=== PATIENT | male | born 1955 | race Caucasian/White ===

== ENCOUNTER → 2017-05-31 | Outpatient (CLI) | payer OTHER | LOC: ULTRA 08:04 | DX: N28.1 Cyst of kidney, acquired (principal); R16.1 Splenomegaly, not elsewhere classified; R94.5 Abnormal results of liver function studies; R74.8 Abnormal levels of other serum enzymes ==

== ENCOUNTER → 2017-09-26 | Outpatient (CLI) | payer OTHER | LOC: NUC 09:09 | DX: R79.89 Other specified abnormal findings of blood chemistry (principal); R89.9 Unspecified abnormal finding in specimens from other organs, systems and tissues ==

== ENCOUNTER → 2017-09-29 | Outpatient (CLI) | payer OTHER | LOC: RAD 07:39 | DX: M88.862 Osteitis deformans of left lower leg (principal) ==

== ENCOUNTER → 2019-09-25 | Outpatient (CLI) | payer OTHER ==
[~2019-09-25] VITALS: Ht 190.5 cm; Wt 88.9 kg
[~2019-09-25] MED LIST: DILTIAZEM ER120 MG PO; DILTIAZEM ER180 M2 PO; ELIQUIS5 MG PO; FLECAINIDE ACE150 MG PO; FLONASE 0.05%50 MCG NARES; LIPITOR10 MG PO; LORATIDINE 10 M10 M1 PO; VITAMIN D32000 UNIT PO
[2019-09-25 08:21] VITALS: BP 115/69
--- NOTE | 2019-09-25 10:00 | EKG ---
[place] [address] [facility] [facility] [place] [place] [address] ELECTROCARDIOGRAM REPORT Name: MELCHOR CORRIGAN Room #: [facility] [id number] Admission: 09/25/19 Attend Phys: Lawrence Vergara MD, Discharge: Date of : 51 Report #: [id number] THIS REPORT FOR: //name// [facility] Test Date: 2019-09-25 Test Time: 09:30:02 Pat Name: MELCHOR CORRIGAN Department: Room: Gender: M Buzzle Buffer: Charbel EAGLE : 1955 Requested By: Lawrence Vergara Order Number: [id number] MD: Lawrence Vergara Measurements Intervals [place] Rate: 65 P: 52 [place]: 179 QRS: 48 QRSD: 105 T: 34 QT: 421 QTc: 438 Interpretive Statements Sinus rhythm RSR' in V1 or V2, right VCD No previous ECG available for comparison Electronically Signed On 09-25-2019 10:00:13 SKIP TRACER by Lawrence Vergara [email or web address] <ELECTRONICALLY SIGNED> By: Lawrence Vergara MD, [facility] 09/25/19 1000 0930 9 Lawrence Vergara MD, FACC /EPI
--- NOTE | 2019-09-25 10:54 | NUR ---
PT RECOVERED WELL AFTER PROCEDURE. DRANK WATER AND UP TO BATHROOM TO VOID WITH STEADY GAIT PRIOR TO DC. NEO DISCUSSED DOSE CHANGE WITH PT AND SPOUSE OF DILTIAZEM FROM 180 MG DAILY TO 120 MG DAILY. SEE VS FLOW SHEET.
--- NOTE | 2019-09-29 17:07 | CATHLAB ---
[facility] [address] [place] [address] INVASIVE PROCEDURE REPORT Name: MELCHOR CORRIGAN Room #: REG [facility]#: [id number] Admission: 09/25/19 Attend Phys: Lawrence Vergara, Discharge: Date of : 51 Report #: [id number] THIS REPORT FOR: //name// CC: Lawrence Fernández PROCEDURE: Cardioversion. INDICATIONS: Atrial flutter. DESCRIPTION OF PROCEDURE: The potential benefits and risks of the procedure were discussed at length with the patient who understood. Full written and informed consent was obtained. The patient was sedated with intravenous Versed and fentanyl. 50 biphasic joules were applied to the chest with prompt conversion of atrial flutter to sinus rhythm. He remained in hemodynamically, electrically, and neurologically stable condition following the procedure. SUMMARY: Successful cardioversion of atrial flutter to sinus rhythm following a single 50 joule biphasic synchronous joule shock. <ELECTRONICALLY SIGNED> By: Lawrence Vergara MD, [facility] 09/29/19 1707 0910 0939 Lawrence Vergara MD, FAC /nt
== END | disposition home or self-care (01) ==
LOC: CATH 07:12
DX: I48.92 Unspecified atrial flutter (principal); E78.00 Pure hypercholesterolemia, unspecified; E78.5 Hyperlipidemia, unspecified; I25.10 Atherosclerotic heart disease of native coronary artery without angina pectoris; Z98.890 Other specified postprocedural states; Z79.899 Other long term (current) drug therapy; Z82.49 Family history of ischemic heart disease and other diseases of the circulatory system; Z79.01 Long term (current) use of anticoagulants; Z87.442 Personal history of urinary calculi

== ENCOUNTER → 2019-10-16 | Outpatient (CLI) | payer OTHER ==
[2019-10-16 09:16] LABS: HEMATOCRIT 43.9 % (42.0-52.0); HEMOGLOBIN 14.9 gm/dL (14.0-18.0); MCHC 34.1 g/dL (28.0-37.0); MCV 99.8 fL (80.0-100.0); RBC 4.4 mil/uL (4.50-6.00); WBC 4.4 thou/uL (4.0-11.0)
[2019-10-16 09:24] LABS: ALBUMIN 4.3 g/dL (3.4-5.0); CALCIUM 9.3 mg/dL (8.5-10.1); POTASSIUM 4.6 mmol/L (3.5-5.1); TOTAL BILIRUBIN 1.2 mg/dL (<0.1-1.0); TOTAL PROTEIN 7.3 g/dL (6.4-8.2)
== END ==
LOC: CAT 08:24
PROVIDERS: Internal Medicine Infectious Disease
DX: I48.91 Unspecified atrial fibrillation (principal); I25.10 Atherosclerotic heart disease of native coronary artery without angina pectoris; M47.814 Spondylosis without myelopathy or radiculopathy, thoracic region; Z90.49 Acquired absence of other specified parts of digestive tract

== ENCOUNTER → 2019-10-20 | Outpatient (CLI) | payer OTHER ==
[~2019-10-20] VITALS: Ht 190.5 cm; Wt 88.5 kg
[~2019-10-20] MED LIST changes: +TAMBOCOR 100 M100 M1 PO
[2019-10-20 07:08] VITALS: BP 102/58
--- NOTE | 2019-10-20 09:04 | TEE ---
[facility] [address] [place] [address] TRANSESOPHAGEAL ECHOCARDIOGRAM Name: MELCHOR CORRIGAN Room #: [facility] [id number] Admission: 10/20/19 Attend Phys: Lawrence Vergara, Discharge: Date of : 51 Report #: [id number] THIS REPORT FOR: //name// APPROVED REPORT Study performed: 10/20/2019 08:07:22 EXAM: Transesophageal Echocardiogram with Doppler Patient Location: Out-Patient Room #: 9 Status: routine BSA: 2.17 HR: 52 bpm BP: 103/68 mmHg Rhythm: Atrial Flutter Other Information Study Quality: Excellent Indications Atrial flutter Echo Enhancing Agent Indication: Rule out Shunt Agent(s) / Amount(s) Used: Agitated Saline 7 cc Procedure After obtaining informed consent, patient underwent transesophageal echo in the [employer]. Type of Sedation : Conscious Sedation Sedation was administered by Nurse. Sedation was achieved intravenously with: Versed (4 mg) Fentanyl (200 mcg) Echo enhancement indication: R/O Septal defect. Echo enhancement agent administered: Agitated Saline The JORJE was performed without complications. Throughout the procedure, the blood pressure, pulse oximetry, cardiac rhythm, and rate were monitored. The patient tolerated the procedure without adverse effects. Recovery from conscious sedation was uneventful and vital signs were stable. Left Ventricle The left ventricle is normal size. There is normal LV segmental wall motion. There is normal left ventricular wall thickness. The left [facility] [address] [place] [address] TRANSESOPHAGEAL ECHOCARDIOGRAM Name: MELCHOR CORRIGAN Room #: REG [facility].#: [id number] Admission: 10/20/19 Attend Phys: Lawrence Vergara, Discharge: Date of : 51 Report #: [id number] ventricular systolic function is normal. The left ventricular ejection fraction is within the normal range. LVEF is 55%. Right Ventricle The right ventricle is normal size. The right ventricular systolic function is normal. Atria The left atrium size is normal. No thrombus is visualized in the left atrium or appendage. No shunting by contrast bubble injection The right atrium size is normal. Aortic Valve The aortic valve is normal in structure. Mild aortic regurgitation. There is no aortic valvular stenosis. Mitral Valve The mitral valve is normal in structure. Mild mitral regurgitation. No evidence of mitral valve stenosis. Tricuspid Valve The tricuspid valve is normal in structure. Mild tricuspid regurgitation. Pulmonic Valve The pulmonary valve is normal in structure. There is no pulmonic valvular regurgitation. Great Vessels The aortic root is normal in size. IVC is normal in size and collapses >50% with inspiration. Pericardium There is no pericardial effusion. <Conclusion> The left ventricular systolic function is normal. There is normal LV segmental wall motion. LVEF is 55%. The left atrium size is normal. No thrombus is visualized in the left atrium or appendage. No shunting by contrast bubble injection The aortic valve is normal in structure. Mild aortic regurgitation, no stenosis. The mitral valve is normal in structure. Mild mitral [facility] [address] [place] [address] TRANSESOPHAGEAL ECHOCARDIOGRAM Name: MELCHOR CORRIGAN Room #: REG [facility]#: [id number] Admission: 10/20/19 Attend Phys: Lawrence Vergara, Discharge: Date of : 51 Report #: [id number] regurgitation. There is no pericardial effusion. <ELECTRONICALLY SIGNED> By: Lawrence Vergara MD, [facility] 10/20/19902 2 2 Lawrence Vergara MD, FAC /INF
== END | disposition home or self-care (01) ==
LOC: CATH 07:03
DX: I48.92 Unspecified atrial flutter (principal); I08.3 Combined rheumatic disorders of mitral, aortic and tricuspid valves; E78.00 Pure hypercholesterolemia, unspecified; I25.10 Atherosclerotic heart disease of native coronary artery without angina pectoris; Z98.890 Other specified postprocedural states; Z79.899 Other long term (current) drug therapy; Z87.442 Personal history of urinary calculi; Z79.01 Long term (current) use of anticoagulants

== ENCOUNTER 2019-10-24 13:00 | Observation (INO) | payer OTHER ==
[2019-10-24] VITALS (13 sets, daily range): BP systolic 115–134; BP diastolic 65–80
[~2019-10-24] VITALS: Ht 182.9 cm; Wt 88.9 kg
--- NOTE | ~2019-10-24 | P ---
[facility] [address] [place] [facility] [address] PROCEDURE REPORT Name: MELCHOR CORRIGAN Room #: 206-P [facility]..#: [id number] Admission: 10/24/19 Attend Phys: Da Negro MD Discharge: Date of : 51 Report #: [id number] THIS REPORT FOR: cc: Frederick Fernández MD, Neal A. MD Couchonnal, Luis F. MD ~ THIS REPORT FOR: //name// CC: Da Fernández PROCEDURE: AFib ablation and atrial flutter ablation. PREOPERATIVE DIAGNOSES: 1. Atrial fibrillation. 2. Typical atrial flutter. POSTOPERATIVE DIAGNOSES: 1. Atrial fibrillation. 2. Typical atrial flutter. PROCEDURES PERFORMED: 1. AFib ablation, CPT code 26558. 2. 3D mapping, CPT code 68671. 3. Intracardiac echo, CPT code 09308. 4. Second pathway ablation, CPT code 36500. HISTORY: The patient is a 64-year-old with structurally normal heart with recurrent AFib and atrial flutter despite antiarrhythmic drug therapy. He is here for an ablation. ANESTHESIA: The patient underwent general anesthesia with no anesthesia related complications. DESCRIPTION OF PROCEDURE: The patient underwent informed consent. We discussed details of the procedure including the risks, which include but not limited to bleeding, vascular damage, cardiac perforation, stroke and SD. He understood these risks and is willing to proceed. The patient was brought to the EP laboratory in a fasting and sedated state, prepped and draped in a sterile fashion. He had undergone a JORJE prior to the procedure showing no left atrial appendage thrombus. He underwent a CT scan, also that showed 2 left and 2 right pulmonary veins. Next, at baseline, the patient was in sinus rhythm. Obtained access to the right femoral vein x 3 and the left femoral vein x 1. In the right femoral vein, I placed an 8, 6 and 9-Danish short sheath; in the left femoral vein, I [address] [address] PROCEDURE REPORT Name: MEENUMELCHOR F Room #: 206-P [facility] Yfn#: [id number] Admission: 10/24/19 Attend Phys: Da Negro MD Discharge: Date of : 51 Report #: [id number] placed a 7-Danish short sheath. Next, under fluoroscopy, I placed a decapolar catheter easily in the coronary sinus and ice catheter in the right atrium. Using intracardiac ultrasound, I created a detailed 3D geometry of the left atrium with specific emphasis of the appendage in the 2 left and 2 right pulmonary veins. This was merged with the cardiac CT scan. The patient was systemically heparinized and the transseptal was performed using an SL1 sheath and a [place] needle. This was straightforward with no issues. I then exchanged the SL1 sheath for the cryo sheath and placed this into the left atrium and using a Biosense-Mane Lasso catheter, I created a detailed 3D geometry of the left atrium. Next, I started by attempting to isolate the left superior pulmonary vein. I performed 2 initial freezes, first freeze was of 180 seconds duration, the second freeze was of 240 seconds duration. The lowest temp was -40 degrees. The vein did not isolate. I therefore decided to move to the left inferior pulmonary vein. I performed initially 180 second freeze followed by 120-second freeze, 240-second freeze and another 180-second freeze. Neither of these freezes resulted in isolation. I initially was using pressure waveforms and then performed injections in this vein and never got a really good seal. I then went and checked the left superior vein and this was still connected therefore, I went to the right superior pulmonary vein. We performed phrenic nerve pacing from the decapolar catheter placed up at the subclavian vessel. I performed a 180-second freeze followed by 110-second freeze. These attempts were very good at -50 degrees. It appeared that the vein was now isolated and there was independent firing. I then turned my attention to the right inferior pulmonary vein and performed a 4-minute freeze followed by 120-second freeze and appeared the vein isolated during the first freeze. I then turned my attention to the right superior pulmonary vein. This time, I performed some injections and finally got a seal when I clocked the balloon. I performed a 4-minute freeze, which resulted in isolation within 60 seconds. When I turned my attention to the left inferior pulmonary vein, it appeared that this was now isolated. I performed an additional 4-minute freeze in the inferior vein to ensure that the judi between the 2 vessels was isolated. As such, I removed the cryo-balloon and placed a Lasso catheter, created a voltage map of the left atrium and we had clearly isolated all the veins. As such, I pulled my catheters to the right atrium. ABLATION OF TYPICAL ATRIAL FLUTTER: Given his history of typical atrial flutter, we proceeded with atrial flutter ablation. I utilized an 8-mm ablation catheter via a ramp sheath. Pre-ablation, the transisthmus conduction time was 50. Ablation was performed at 6 o'clock along the cavotricuspid isthmus. I performed 2 lines. Post-ablation, I performed a voltage map of this area and there was no further voltage. Furthermore, the transisthmus conduction time pacing either medial or lateral to line was now 120 milliseconds. As such, the procedure was concluded. Intracardiac ultrasound verified. No evidence of pericardial effusion. As such, the patient received systemic protamine. Sheaths were pulled. Hemostasis was obtained. The patient awoke neurologically and hemodynamically intact. No complications and no significant bleeding. [facility] [address] [place] [address] PROCEDURE REPORT Name: MELCHOR CORRIGAN Room #: 206-P [facility] [place]#: [id number] Admission: 10/24/19 Attend Phys: Da Negro MD Discharge: Date of : 51 Report #: [id number] CONCLUSIONS: 1. Successful AFib ablation with isolation of pulmonary veins. 2. Successful atrial flutter ablation with evidence of bidirectional block. By: 1301 33 Da Negro MD /nt
[2019-10-24 07:07] LABS: ABSOLUTE NEUTROPHILS 4.1 thou/uL (1.4-8.2); BASOPHILS 0.2 % (0.0-2.0); EOSINOPHILS 1.7 % (0.0-3.0); HEMATOCRIT 44.2 % (42.0-52.0); HEMOGLOBIN 15.2 gm/dL (14.0-18.0); LYMPHOCYTES 16.9 % (24.0-44.0); MCHC 34.3 g/dL (28.0-37.0); MCV 99.2 fL (80.0-100.0); MONOCYTES 7.1 % (1.0-8.0); PLATELET COUNT 154 thou/uL (150-400); POLYS 74.1 % (36.0-66.0); RBC 4.46 mil/uL (4.50-6.00); RDW 12.8 % (10.5-14.5); WBC 5.5 thou/uL (4.0-11.0)
[2019-10-24 07:18] LABS: CALCIUM 8.9 mg/dL (8.5-10.1); INR 1.1; POTASSIUM 3.9 mmol/L (3.5-5.1); PROTIME 11.4 Seconds (9.3-11.4)
[2019-10-24 07:25] LABS: ALBUMIN 4.3 g/dL (3.4-5.0); TOTAL PROTEIN 7.7 g/dL (6.4-8.2)
[2019-10-25 04:03] VITALS: BP 118/64
[2019-10-25] MEDS ORDERED: DILTIAZEM ER120 MG PO ×2 (07:50)
[2019-10-25] MEDS ORDERED: FLECAINIDE ACE150 MG PO ×2 (07:50)
[2019-10-25 07:55] VITALS: BP 147/67
[2019-10-25 08:20] VITALS: BP 118/64
== END 2019-10-25 09:52 | disposition home or self-care (01) ==
LOC: CATH 13:00 → 2N 13:01 → CATH 14:00 → 2N 10-25 09:52
PROVIDERS: ADMIT Internal Medicine Cardiovascular Disease
DX: I48.91 Unspecified atrial fibrillation (principal); I48.92 Unspecified atrial flutter
CPT/HCPCS: 62110; 62900; 65020; 65040; 65131; 70005

== ENCOUNTER 2020-02-06 06:49 | Outpatient (CLI) | payer OTHER ==
[2020-02-06] VITALS (8 sets, daily range): BP systolic 106–126; BP diastolic 69–75
[~2020-02-06] VITALS: Ht 190.5 cm; Wt 108.1 kg
[~2020-02-06 06:49] MED LIST changes: -VITAMIN D32000 UNIT PO; +VITAMIN D350 MC1 PO
[2020-02-06 07:51] LABS: ABSOLUTE NEUTROPHILS 3.5 thou/uL (1.4-8.2); BASOPHILS 0.3 % (0.0-2.0); EOSINOPHILS 2.1 % (0.0-3.0); HEMATOCRIT 44.6 % (42.0-52.0); HEMOGLOBIN 15.5 gm/dL (14.0-18.0); LYMPHOCYTES 20.4 % (24.0-44.0); MCH 34.5 pg (26.0-34.0); MCHC 34.8 g/dL (28.0-37.0); MCV 99.1 fL (80.0-100.0); MONOCYTES 8.6 % (1.0-8.0); PLATELET COUNT 152 thou/uL (150-400); POLYS 68.6 % (36.0-66.0); RDW 12.6 % (10.5-14.5); WBC 5.2 thou/uL (4.0-11.0)
[2020-02-06 08:01] LABS: PROTIME 10.4 Seconds (9.3-11.4)
[2020-02-06 08:31] LABS: CALCIUM 8.4 mg/dL (8.5-10.1); CREATININE 1.1 mg/dL (0.7-1.3); POTASSIUM 3.9 mmol/L (3.5-5.1)
[2020-02-06 08:37] LABS: TOTAL BILIRUBIN 0.9 mg/dL (<0.1-1.0); TOTAL PROTEIN 7.2 g/dL (6.4-8.2)
[2020-02-06] MEDS ORDERED: TAMBOCOR 100 M100 M1 PO ×2 (15:36→16:05)
--- NOTE | 2020-02-06 17:27 | NUR ---
PT. ARRIVED AROUND 0; PT. AOX4; NO C/O PAIN; R GROIN SIDE DRESSING WITH OLD DRAINAGE; NO HEMATOMA; L. SIDE DRESSING C/D/I; NO HEMATOMA; PT. EDUCATED ABOUT HOLDING PRESSURE IF COUGHING; ON BED REST UNTIL 2044; NOT BEND BLE; ST. UNDERSTANDING; VS WNL; REFUSED DINNER; ST. WANTS TO WAIT UNTIL OFF OF BED REST; ADMISSION PERFOMED; SR ON THE MONITOR; MONITORING; ASSESSMENT CHARGED; FOLLOWING POC; WILL PASS ON REPORT;
[2020-02-07] VITALS: BP 126/84
[2020-02-07 04:33] VITALS: BP 122/77
--- NOTE | 2020-02-07 06:38 | NUR ---
ASSUMED PT CARE AT 1900. PT IS ALERT AND ORIENTED WITH NO SIGN OF DISTRESS NOTED IN PT. PT IS ON BEDREST DUE TO AN ABLATION. BEDREST INITIALLY COMPLETED AT 2024. UPON COMPLETED , PT SAT AT THE GOT UP TO SIT AT THE EDGE OF THE BED WHEN HE NOTICED THAT HE WAS BLEEDING FROM THE RIGHT GROIN SITE. PT PLACE BACK ON BEDREST, PRESSURE APPLIED TO RIGHT GROIN SITE FOR 25 MINUTES. BLEEDING CONTROLLED. PT IS STABLE. BEDREST COMPLETED AT 324. PT AMBULATED WITH NO DISTRESS. ASSESSMENT COMPLETED AND DOCUMENTED. SCHEDULED MEDS ADMINISTERED TO PT. DENIES ANY FURTHER NEEDS AT THIS TIME
[2020-02-07] MEDS ORDERED: TAMBOCOR 100 M100 M1 PO (07:22)
[2020-02-07 08:00] VITALS: BP 117/74
[2020-02-07 08:48] VITALS: BP 117/74
[2020-02-07 09:47] VITALS: BP 117/74
--- NOTE | 2020-02-09 08:29 | P ---
[facility] [address] PROCEDURE REPORT Name: MELCHOR CORRIGAN Room #: DEP [facility] Yfn#: [id number] Admission: 02/06/20 Attend Phys: Da Negro MD Discharge: 02/07/20 Date of : 51 Report #: [id number] THIS REPORT FOR: cc: Frederick Fernández MD, Neal A. MD Couchonnal, Luis F. MD ~ CC: Da Fernández DATE OF SERVICE: 02/06/2020 AFIB AND A-FLUTTER ABLATION PREOPERATIVE DIAGNOSIS: Atrial flutter. 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 PROCEDURES PERFORMED: 1. Atrial fibrillation ablation, CPT code 42056. 2. 3D mapping, CPT code 07325. 3. Intracardiac echo, CPT code 42125. 4. Focal ablation of the coronary sinus, CPT code 39792. 5. Second pathway ablation for mitral annular flutter, CPT code 31782. HISTORY: The patient is a 64-year-old male with a history of structurally normal heart, who is status post recent AFib ablation. At that time, we isolated his pulmonary veins using cryoablation balloon and performed an empiric right-sided flutter ablation given prior documented atrial flutter. The patient was seen in clinic in followup and was noted to be back in atrial flutter. He is here for repeat AFib ablation and atrial flutter ablation. ANESTHESIA: The patient underwent general anesthesia with no anesthesia related complications. DESCRIPTION OF PROCEDURE: The patient was brought to the EP laboratory in fasting and sedated state, prepped and draped in the sterile fashion. In the right femoral vein, I placed two 8-Haitian short sheath and a 9-Haitian short sheath. In left femoral vein, I placed two 7-Haitian short sheaths. Under fluoroscopy, I placed a Decapolar catheter into the coronary sinus and ICE catheter into the right atrium and a Duo-Decapolar catheter into the right atrium. The patient was noted to have a left-sided atrial flutter with a tachycardia cycle length of around 220 milliseconds with a distal to proximal activation pattern. When I paced from CS 1-2, the PPI minus tachycardia cycle length was around 20 milliseconds consistent with probable mitral annular flutter. As such, the patient was systemically heparinized and a transseptal was performed using an SL1 sheath and a [place] needle. This was [facility] [address] [place] [address] PROCEDURE REPORT Name: MELCHOR CORRIGAN Room #: DEP [facility]#: [id number] Admission: 02/06/20 Attend Phys: Da Negro MD Discharge: 02/07/20 Date of : 51 Report #: [id number]. I then exchanged for the Agilis sheath and then I placed a PentaRay catheter into the left atrium and created an activation and voltage map. It appeared that all the veins were reconnected except the left superior pulmonary vein. The left inferior pulmonary vein had a slight area of reconnection. We created an activation map and we performed entrainment and based on these findings, a diagnosis of mitral annular flutter was made. We first started by isolating the left inferior pulmonary vein and then we performed a mitral annular flutter line from the left inferior pulmonary vein to the mitral annulus. There was no slowing of the tachycardia. I performed multiple lines along this region looking for atrial signals. There was no change in the tachycardia cycle length. I therefore took the ablation catheter into the coronary sinus and performed ablation along the roof of the coronary sinus from around 3 o'clock down to 6 o'clock along the coronary sinus. Despite this ablation, the atrial flutter did not slow nor did it terminate. Therefore, we remapped the flutter and our map essentially was unchanged. I did perform some additional entrainment along the ridge between the left superior and the left atrial appendage. I therefore ablated all along the ridge and also along the vein side and appendage side of the ridge. I connected this line down to my mitral annular line and despite this, the patient was still in atrial flutter. I therefore widened my area of ablation along the posterior wall and created a roofline and then there was still evidence of connection of the right superior pulmonary vein and there was a right middle vein and there was still connection of the right inferior pulmonary vein. I attempted to ablate using the radiofrequency in this area, but I was limited by my transseptal and nearly lost transseptal access several times. Therefore, we transitioned over to the cryoablation balloon and I was able to isolate the right inferior pulmonary vein with cryoballoon. I could not engage the right middle pulmonary vein with the cryoballoon. It was quite small, but did have activity and I did multiple freezes of the right superior pulmonary vein and the vein would isolate after about 3 minutes and then it would reconnect. I did multiple freezes in this right superior pulmonary vein and despite my best efforts, I could not isolate this vein. Of note, phrenic nerve pacing was performed while freezing the right-sided veins and there was never any phrenic nerve compromise. I decided to use a cryoballoon to further isolate the posterior wall of the left atrium. We performed 3 freezes anchored from the left superior pulmonary vein and 2 freezes anchored from the left inferior pulmonary vein, hoping that maybe we would transect whatever circuit was driving this atrial flutter. Despite these freezes, the patient remained in atrial flutter. Therefore, I performed a 200 joule synchronized cardioversion. I re-interrogated all the veins and all veins were isolated except this right superior pulmonary vein and this very small right inferior pulmonary vein that I could not engage with the balloon. As such, the procedure was concluded. The patient was in sinus rhythm. The patient received systemic protamine and once ACT was within acceptable range, catheters and sheaths were pulled. Of note, post-ablation, there was no pericardial effusion and we did perform esophageal temperature monitoring throughout the case and these remained stable with cryoablation and [facility] [address] [place] [address] PROCEDURE REPORT Name: MELCHOR CORRIGAN [facility] [id number] Admission: 02/06/20 Attend Phys: Da Negro MD Discharge: 02/07/20 Date of : 51 Report #: [id number] radiofrequency ablation. CONCLUSIONS: 1. Unsuccessful ablation of probable mitral annular flutter despite creation of a mitral line ablation along the ridge and a coronary sinus ablation. 2. Successful re-isolation of the left inferior and right inferior pulmonary veins. 3. Unsuccessful isolation of the right superior pulmonary vein and right middle pulmonary vein, which were in close proximity to each other. <ELECTRONICALLY SIGNED> By: Da Negro MD 02/09/20 0829 1436 1540 Da Negro MD /nt
--- NOTE | 2020-02-24 14:03 | P ---
[facility] [place] [address] PROCEDURE REPORT Name: MELCHOR CORRIGAN Room #: DEP Loan Coulter#: [id number] Admission: 02/06/20 Attend Phys: Da Negro MD Discharge: 02/07/20 Date of : 51 Report #: [id number] THIS REPORT FOR: cc: Frederick Fernández MD, Neal A. MD Couchonnal, Luis F. MD ~ CC: Da Fernández DATE OF SERVICE: 02/06/2020 AFIB/AFLUTTER ABLATION PREOPERATIVE DIAGNOSES: 1. Atrial fibrillation. 2. Atrial flutter. POSTOPERATIVE DIAGNOSES: 1. Atrial fibrillation. 2. 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 PROCEDURES PERFORMED: 1. Atrial fibrillation ablation, CPT code 17169. 2. 3D mapping, CPT code 00696. 3. Intracardiac echo, CPT code 55375. 4. Focal ablation, CPT code 18235. 5. Second pathway ablation, CPT code 57710. HISTORY OF PRESENT ILLNESS: The patient is a 64-year-old male status post recent AFib ablation. The patient had been doing well post-ablation, but then was found to have new-onset atrial flutter. He is here for AFib and atrial flutter ablation. PROCEDURE: The patient was brought to the EP laboratory in fasting and sedated state and prepped and draped in a sterile fashion. He was noted to be in atrial flutter at baseline. I then obtained access to the right femoral vein x 3 and the left femoral vein x 2. In the right femoral vein, I placed two 8-Congolese short sheaths and a 9-Congolese short sheath and in left femoral vein, I placed two 7-Congolese short sheaths. Next, under fluoroscopy, I placed a Decapolar catheter easily in the coronary sinus for left atrial pacing and recording. I placed a Duo-Decapolar catheter into the right atrium. I placed an ICE catheter into the right atrium for intracardiac ultrasound and for 3D geometry. Once I placed the Decapolar into the coronary sinus, it became evident that the patient appeared to have a left-sided atrial flutter. Entrainment was performed from the CS 1-2 and this showed a PPI minus tachycardia cycle length of 10 milliseconds. Next, the patient was systemically heparinized and a transseptal was performed using [facility] [address] [place] [address] PROCEDURE REPORT Name: MEENUMELCHOR Room #: DEP [facility] Yfn#: [id number] Admission: 02/06/20 Attend Phys: Da Negro MD Discharge: 02/07/20 Date of : 51 Report #: [id number] an SL1 sheath and a [place] needle and then I transitioned over to an Agilis and used a PentaRay for 3D voltage mapping of the left atrium. The repeat voltage map of the left atrium showed that the left inferior pulmonary vein was reconnected and that the right superior pulmonary vein was reconnected. The other veins remained isolated. AFib ablation: Next, the left inferior pulmonary vein was re-isolated. Attempts were made to re-isolate the right superior pulmonary vein but this was challenging. I did have somewhat of a high and posterior transseptal. To try and isolate this right superior pulmonary vein, I transitioned over to a cryoablation balloon and I performed several freezes of this vein and the vein would transiently isolate but then it would reconnect. Post-ablation, there was still some small electrograms noted in the right superior pulmonary vein, but most of the vein was isolated. I performed additional ablation lesions in the right inferior pulmonary vein, and I cryo ablated the left inferior pulmonary vein and the left superior pulmonary veins as well just to try and widen out the prior ablation. I was also hoping that additional ablation with the cryoballoon would terminate the mitral annular flutter; however, this was unsuccessful. Using the cryoablation balloon, I also performed several roofline freezes to try and isolate the posterior roof region of the left atrium. Mitral annular flutter ablation: Initially ablation of the mitral annular flutter was performed in the left atrium and I tried to connect the left inferior pulmonary vein to the mitral annulus. This did not result in termination of the flutter. I therefore entered the coronary sinus and performed a continuous drag lesion along the coronary sinus and this did not terminate the flutter either. Further mapping of this flutter was performed multiple times including ablation being performed along the ridge between the left superior pulmonary vein and the left atrial appendage. A continuous drag line was performed from this region. I connected this with my mitral annular line. This did not result in termination. As mentioned above, initially, I did try to ablate this mitral annular flutter alone and then turned to trying to use the cryoablation balloon to widen our areas of ablation by performing mitral annular line and widening our ablation sets from the pulmonary veins and this also did not result in termination of the tachycardia. As such, we performed extensive ablation and could not terminate this atrial flutter. As such, the patient underwent DC cardioversion with voodoo of sinus rhythm. Post-ablation, the patient was in sinus rhythm with sinus cycle length of 795 milliseconds, [place] interval 165 milliseconds, QRS duration 99 milliseconds, QT interval 390 milliseconds. Of note, esophageal temperatures were monitored during RF and cryoablation. CONCLUSIONS: 1. Unsuccessful ablation of atypical atrial flutter, likely mitral annular in nature. 2. Successful re-isolation of the pulmonary veins. [facility] [address] [place] [address] PROCEDURE REPORT Name: MELCHOR CORRIGAN [id number] Admission: 02/06/20 Attend Phys: Da Negro MD Discharge: 02/07/20 Date of : 51 Report #: [id number] 3. Unsuccessful isolation of the right superior pulmonary vein due to challenging anatomy. <ELECTRONICALLY SIGNED> By: Da Negro MD 02/24/20 1403 [id number] [id number] Da Ngero MD /nt
== END 2020-02-07 09:59 | disposition home or self-care (01) ==
LOC: CATH 06:49 → 2N 15:55 → CATH 02-07 09:59
PROVIDERS: Internal Medicine Cardiovascular Disease
DX: I48.92 Unspecified atrial flutter (principal); I48.91 Unspecified atrial fibrillation; E78.5 Hyperlipidemia, unspecified; E78.00 Pure hypercholesterolemia, unspecified; Z98.890 Other specified postprocedural states; Z79.899 Other long term (current) drug therapy; Z79.01 Long term (current) use of anticoagulants
CPT/HCPCS: 10081; 62110; 62900; 65020; 65040; 65131; 70005

== ENCOUNTER 2020-02-08 10:26 | Emergency (ER) | payer OTHER ==
[~2020-02-08] VITALS: Ht 182.9 cm; Wt 90.7 kg
[2020-02-08 11:36] LABS: URINE BILIRUBIN NEGATIVE (Negative); URINE BLOOD 1+ (Negative); URINE CLARITY CLEAR; URINE COLOR YELLOW; URINE GLUCOSE-RANDOM* NEGATIVE (Negative); URINE KETONES NEGATIVE (Negative); URINE LEUKOCYTES-REFLEX TRACE (Negative); URINE NITRITE-REFLEX NEGATIVE (Negative); URINE PROTEIN (DIPSTICK) NEGATIVE (Negative); URINE SPECIFIC GRAVITY <= 1.005 (1.005-1.035); URINE UROBILINOGEN 0.2 E.U./dl (0.2-1.0)
[2020-02-08 11:51] LABS: SQUAMOUS 0-3 Few /LPF (0-3)
[2020-02-08 11:52] LABS: BACTERIA-REFLEX 1-9 Few /HPF (None Seen); CASTS None Seen /LPF (None Seen); CRYSTALS None Seen /LPF (None Seen); URINE RBC 3-10 Few /HPF (0-2); URINE WBC-REFLEX 0-5 Rare /HPF (0-5)
[2020-02-08 12:01] LABS: MCH 34.3 pg (26.0-34.0); MCHC 34.7 g/dL (28.0-37.0); MCV 98.9 fL (80.0-100.0); RBC 3.94 mil/uL (4.50-6.00); RDW 12.4 % (10.5-14.5); WBC 11.8 thou/uL (4.0-11.0)
[2020-02-08 12:03] LABS: HEMOGLOBIN 13.5 gm/dL (14.0-18.0)
[2020-02-08 12:06] LABS: ANION GAP 8 mmol/L (7-16); BUN 19 mg/dL (7-18); CALCIUM 7.9 mg/dL (8.5-10.1); CHLORIDE 103 mmol/L (98-107); CO2 27 mmol/L (21-32); CREATININE 1.1 mg/dL (0.7-1.3); GLUCOSE 102 mg/dL (74-106); POTASSIUM 3.8 mmol/L (3.5-5.1); SODIUM 138 mmol/L (136-145)
[2020-02-08 12:12] LABS: ALBUMIN 3.7 g/dL (3.4-5.0); DIRECT BILIRUBIN < 0.1 mg/dL (<0.1-0.2); SGOT 64 U/L (15-37); SGPT 44 U/L (30-65); TOTAL BILIRUBIN 1.2 mg/dL (<0.1-1.0); TOTAL PROTEIN 6.6 g/dL (6.4-8.2)
[2020-02-08 12:30] VITALS: BP 110/68
[2020-02-08 12:48] LABS: PLATELET ESTIMATE SLIGHTLY DECREASED
[2020-02-08 12:49] LABS: LARGE PLATELETS FEW; PLATELET COUNT 135 thou/uL (150-400)
--- NOTE | 2020-02-09 08:06 | EKG ---
[facility] [place] [address] [place] [address] ELECTROCARDIOGRAM REPORT Name: MELCHOR CORRIGAN [facility] [id number] Admission: 02/08/20 Attend Phys: Discharge: 02/08/20 Date of : 51 Report #: [id number] THIS REPORT FOR: cc: Frederick Fernández MD, Neal A. MD Lundgren,Lawrence Freed MD [facility] ~ THIS REPORT FOR: //name// [facility] ED Test Date: 2020-02-08 Test Time: 11:16:10 Pat Name: MELCHOR CORRIGAN Department: Room: Gender: Electronic Engineering Draftsperson: [facility] : 1955 Requested By: Maikel Acosta Order Number: [id number] MD: Lawrence Vergara Measurements Intervals [place] Rate: 90 P: 45 [place]: 185 QRS: 50 QRSD: 113 T: 27 QT: 360 QTc: 441 Interpretive Statements Sinus rhythm Incomplete right bundle branch block Low voltage, precordial leads Compared to ECG 09/25/2019 09:30:02 Low QRS voltage now present Electronically Signed On 02-09-2020 8:04:39 CDT by Lawrence Vergara [email or web address] <ELECTRONICALLY SIGNED> By: Lawrence Vergara MD, [facility] 02/09/20 0804 1116 1116 Lawrence Vergara MD, [facility] /EPI
== END 2020-02-08 12:32 | disposition home or self-care (01) ==
LOC: ER 10:26
PROVIDERS: Emergency Medicine
DX: R50.9 Fever, unspecified (principal); R06.02 Shortness of breath; R07.89 Other chest pain; R30.0 Dysuria; I25.10 Atherosclerotic heart disease of native coronary artery without angina pectoris; E78.00 Pure hypercholesterolemia, unspecified; I48.91 Unspecified atrial fibrillation; Z87.442 Personal history of urinary calculi; Z90.89 Acquired absence of other organs; Z98.890 Other specified postprocedural states; Z79.899 Other long term (current) drug therapy; Z91.011 Allergy to milk products

== ENCOUNTER → 2021-05-31 | Outpatient (CLI) | payer OTHER | LOC: SJCVCIMAG 05-23 13:20 | PROVIDERS: ATTEND Internal Medicine Cardiovascular Disease | DX: I08.8 Other rheumatic multiple valve diseases (principal); I48.91 Unspecified atrial fibrillation ==